=== PATIENT | male | born 2000 | race Caucasian/White ===

== ENCOUNTER 2022-09-06 07:07 | Day surgery (SDC) | payer OTHER ==
[~2022-09-06] VITALS: Ht 167.6 cm; Wt 45.4 kg
[2022-09-06] MEDS: MIDAZOLAM HCL 5 MG/5 ML VIAL ONE ×4 (08:41→08:52)
[2022-09-06] MEDS: fentaNYL CITRATE/PF 100 MCG/2 ML AMP ONE ×3 (08:41→08:48)
[2022-09-06] MEDS ORDERED: DIPHENHYDRAMINE INJ 50 MG/ML VIAL ONE (08:47)
[2022-09-06] MEDS ORDERED: MIDAZOLAM HCL 5 MG/5 ML VIAL ONE (08:56)
[2022-09-06 12:39] VITALS: BP_SYST 113
== END 2022-09-06 10:05 | disposition home or self-care (01) ==
LOC: SDS 07:07 → SMU 07:14 → SDS 10:05
PROVIDERS: ATTEND Internal Medicine
DX: K62.5 Hemorrhage of anus and rectum (principal); K64.8 Other hemorrhoids; Z20.822 Contact with and (suspected) exposure to COVID-19
CPT/HCPCS: 45380; 87426; 36415; 88305; 99152; 99153; G0378; J1200; J2250; J3010